=== PATIENT | male | born 1960 | race Two or more races ===

== ENCOUNTER → 2024-02-20 12:35 | Outpatient (REF) | payer BC, SELFPAY | LOC: MRI 3T 12:35 | PROVIDERS: ATTENDING PHYSICIAN Urology; FAMILY PHYSICIAN Dermatology | DX: N20.0 Calculus of kidney (principal); N40.0 Benign prostatic hyperplasia without lower urinary tract symptoms; R97.20 Elevated prostate specific antigen [PSA] | CPT/HCPCS: 72197; A9575 ==

== ENCOUNTER 2024-03-22 03:23 | Emergency (ER) | payer BC, SELFPAY ==
[2024-03-22 03:25] VITALS: BP 174/99; BMI 25.8
[2024-03-22 03:27] VITALS: BP 174/99
[2024-03-22 03:49] LABS: % Basophils 0.7 % (0-2); % Eosinophils 4.2 % (0-6); % Immature Granulocytes 0.2 % (0-0.5); % Lymphocytes 38.9 % (20.5-51.1); % Monocytes 9.2 % (1.7-9.3); % Neutrophils 46.8 % (42.2-75.2); Absolute Eosinophils 0.2 10^3/uL (0-0.7); Absolute Lymphocytes 2.1 10^3/uL (1.2-3.4); Absolute Monocytes 0.5 10^3/uL (0.1-0.6); Absolute Neutrophils 2.5 10^3/uL (1.4-6.5); Hematocrit 39.6 % (39.0-52.0); Hemoglobin 14.2 g/dL (13.0-18.0); Mean Corp Hgb Conc. 35.9 g/dL (33.0-37.0); Mean Corpuscular Hgb 32.6 pg (27.0-31.0); Mean Platelet Volume 9.4 fL (7.4-10.4); Nucleated Red Blood Cells % 0 % (-); Platelet Count 247 10^3/uL (130-400); Red Blood Cell Count 4.35 10^6/uL (4.70-6.10); Red Cell Dist. Width 12.3 % (11.5-14.5); White Blood Cell Count 5.4 10^3/uL (4.8-10.8)
[2024-03-22 04:00] VITALS: BP 165/93
[2024-03-22 04:03] LABS: ALT (SGPT) 18 U/L (0-50); AST (SGOT) 23 U/L (17-59); Albumin 4.7 g/dl (3.5-5.0); Alkaline Phosphatase 72 U/L (38-126); Blood Urea Nitrogen 20 mg/dl (9-20); Calcium 9.8 mg/dl (8.4-10.2); Carbon Dioxide 26 mmol/L (22-30); Chloride 103 mmol/L (98-107); Estimated Creatinine Clearance 69 ml/min; Glucose 128 mg/dl (70-99); Potassium 3.9 mmol/L (3.5-5.1); Sodium 140 mmol/L (135-145); Total Bilirubin 0.4 mg/dl (0.2-1.3); eGFR > 60.00
[2024-03-22 04:04] LABS: COVID-19 Antigen Negative (Negative)
[2024-03-22 04:14] LABS: Troponin I 0.018 ng/ml
[2024-03-22 05:00] VITALS: BP 170/94
--- NOTE | 2024-03-22 05:49 | ED.GENMED ---
History of Present Illness
<SHRUTHI Florez - Last Filed: 03/22/24 06:04>
General
Chief Complaint: Blood Pressure Problem
Source: patient
Time Seen by Provider: 03/22/24 05:35
History of Present Illness
History of Present Illness:
Patient is a 63 y/o male with PMHx of kidney stones presenting with elevated blood pressure x1 day. He states he went to the urologist yesterday afternoon and his systolic pressure was 190. He states he felt fine and went home and continued checking
his pressures throughout the day which continued to be elevated. He states he took two of his wives 25 mg losartan at around 2200pm last night. He states he woke up at around 0200am this morning with head pressure, nausea, and 'feeling different.'
He states he checked his BP and his systolic was 225 so he came to the ED. He states he feels a little better but he still does not feel like himself. He states he does not have diarrhea but has been having bowel movements every 30 minutes since he
woke up. He denies any chest pain, headache, dizziness, vision changes, abdominal pain, vomiting.
Phy Exam
<SHRUTHI Florez - Last Filed: 03/22/24 06:04>
Physical Exam
Physical Exam:
GENERAL: Alert , in no apparent distress
EYE: pupils equal and reactive
Throat: Airway intact, no exudates
NECK: Supple, no significant adenopathy.
CARDIAC: Regular rate and rhythm .
LUNGS: Clear breath sounds bilaterally, no acute respiratory distress, no wheezes/rales/rhonchi
ABDOMEN: Soft, nondistended, nontender, no cvat
NEUROLOGICAL: Alert and oriented x3, following commands, no focal neuro deficits.
SKIN: Warm and dry, skin intact.
MUSCULOSKELETAL: No edema, well perfused.
PSYCH: Normal and appropriate interaction.
Course
<SHRUTHI Florez - Last Filed: 03/22/24 06:04>
Orders/Labs/Results
Orders:
Orders
03/22/24 03:37
Electrocardiogram (*1) Urgent
Reason for Study: Hypertension, Benign
EKG- Treatment ONCE
03/22/24 03:40
COVID-19 Antigen Urgent
Source: Nasal Swab
Complete Blood Count/With Diff Urgent
Comprehensive Metabolic Panel Urgent
Troponin I Urgent
Influenza A+B Rapid Molecular Urgent
RODOLFO Source: Nasal Swab
Specimen Description:
03/22/24 06:22
Lisinopril [Zestril] 10 mg PO NOW STA
03/22/24 06:36
Urinalysis Reflex To Culture Urgent
Date Specimen was Collected: 03/22/24
Time Specimen was Collected: 07:40
Abnormal Lab Results
03/22/24
03:40
RBC 4.35 L 10^6/uL
(4.70-6.10)
MCH 32.6 H pg
(27.0-31.0)
Glucose 128 H mg/dl
(70-99)
03/22/24 03:40
03/22/24 03:40
Vital Signs
Initial and Last Documented VS:
Initial Vital Signs
Temp Pulse Resp BP Pulse Ox
97.8 F 83 14 174/99 99
03/22/24 03:25 03/22/24 03:25 03/22/24 03:25 03/22/24 03:25 03/22/24 03:25
Last Documented Vital Signs
Temp Pulse Resp BP Pulse Ox
97.8 F 67 13 168/108 98
03/22/24 03:25 03/22/24 07:08 03/22/24 07:08 03/22/24 06:44 03/22/24 07:08
<Deondre Norman DO - Last Filed: 03/22/24 07:45>
Orders/Labs/Results
Orders:
Orders
03/22/24 03:37
Electrocardiogram (*1) Urgent
Reason for Study: Hypertension, Benign
EKG- Treatment ONCE
03/22/24 03:40
COVID-19 Antigen Urgent
Source: Nasal Swab
Complete Blood Count/With Diff Urgent
Comprehensive Metabolic Panel Urgent
Troponin I Urgent
Influenza A+B Rapid Molecular Urgent
RODOLFO Source: Nasal Swab
Specimen Description:
03/22/24 06:22
Lisinopril [Zestril] 10 mg PO NOW STA
03/22/24 06:36
Urinalysis Reflex To Culture Urgent
Date Specimen was Collected: 03/22/24
Time Specimen was Collected: 07:40
Abnormal Lab Results
03/22/24
03:40
RBC 4.35 L 10^6/uL
(4.70-6.10)
MCH 32.6 H pg
(27.0-31.0)
Glucose 128 H mg/dl
(70-99)
03/22/24 03:40
03/22/24 03:40
Vital Signs
Initial and Last Documented VS:
Initial Vital Signs
Temp Pulse Resp BP Pulse Ox
97.8 F 83 14 174/99 99
03/22/24 03:25 03/22/24 03:25 03/22/24 03:25 03/22/24 03:25 03/22/24 03:25
Last Documented Vital Signs
Temp Pulse Resp BP Pulse Ox
97.8 F 67 13 168/108 98
03/22/24 03:25 03/22/24 07:08 03/22/24 07:08 03/22/24 06:44 03/22/24 07:08
<SHRUTHI Florez - Last Filed: 03/22/24 06:04>
MDM/Problems Addressed
Differential Diagnosis Includes:
Hypertension
<SHRUTHI Florez - Last Filed: 03/22/24 06:04>
*Pulse Oximetry
Patient hypoxic: no
*EKG
Interpreted by ED Provider?: Yes
EKG Intrepretation Date: 03/22/24
Interpretation: normal
Comparison EKG: no comparison EKG present
Heart Rate: 76
Rate: normal
Rhythm: sinus
[place]: normal axis
Interval: normal interval
QRS Pattern: normal QRS
Ischemia: no ischemia
*Trial Manager Interpretation
Rate: Trial Manager- N/A
*Critical Care Note
Total Time (30-74mins, 75-104mins- exclusive of procedures): Not Applicable
ED Attending Note
<SHRUTHI Florez - Last Filed: 03/22/24 06:04>
-
Portions of this chart may have been created with voice recognition software.� Occasional wrong word or��sound alike� substitutions may have occurred due to the inherent limitations of voice recognition software.
<Deondre Norman DO - Last Filed: 03/22/24 07:45>
ED Attending Note
Patient seen and examined by attending physician: Yes
I performed the substantive portion of visit, reviewed & personally made and approve the management plan that is documented in note by myself or GEOVANNA.: Yes
ED Attending Note:
Pleasant 63-year-old male that presents with hypertension for the last day. Patient does have a past history of kidney stones. He went to the urologist yesterday and his systolic blood pressure was 190. He had no symptoms at that point. He went
home and continue to check his blood pressure. His , a pharmacist gave him losartan around 10 PM last evening. He states that he had head pressure nausea and feeling different. Denies abdominal or flank pain. He denied any chest pain or
shortness of breath. Patient does report having some diarrhea. Denies fever or chills. Patient was seen in conjunction with the PA student. I have reviewed and agree with the history and treatment plan presented. On my independent physical
exam, patient is awake, alert, and oriented x3, no acute distress. Heart is regular rate and rhythm. Lungs are clear to auscultation bilaterally no wheezes rales rhonchi present. Abdomen is soft nontender nondistended hepatosplenomegaly. Moves
all 4 extremities. No CVA tenderness.
03/22/2024 0744 AM: Into see the patient. Resting comfortably in no acute distress.
Discharge Plan
Departure
Instructions: High Blood Pressure (DC), BLOOD PRESSURE
Prescriptions:
New
lisinopril 10 mg tablet
10 mg PO DAILY Qty: 30 0RF
Referrals:
Morris Dunn DO [Family Provider] -
Activity Restrictions/Additional Instructions:
Your prescriptions were sent electronically to the pharmacy that you specified.
It was a pleasure meeting you and taking part in your care. We hope for your continued healing and wellness.
Please read discharge instructions in their entirety. However, they are for general education and may not describe your exact diagnosis at discharge. Information on your ER visit and medical conditions were discussed with you along with appropriate
follow up information...
If indicated, please take your medications as instructed and indicated on discharge paperwork.
Please schedule a follow up appointment as directed. Call to schedule an appointment
Please return to the emergency department with ANY change in, persisting, or worsening of symptoms. If any of your symptoms do not improve, or persist, or become more severe within 6-12 hours, please return to the emergency department for further
care.
Please return to the emergency department if you develop a headache, neck pain/stiffness, fever greater than 100.4F, chest pain, shortness of breath, persistent nausea, vomiting, slurred speech, difficulty walking, numbness/tingling, weakness, signs
of infection or any other symptoms that are worrisome to you.
If you have any questions or concerns please do not hesitate to call the Hospital at or E-mail me directly at [email or web address]
Interventions
Interventions:
*Risk Screen - Suicide Last Done: 03/22/24 03:25
*General Assessment Last Done: 03/22/24 03:25
*Neglect/Abuse Screening Last Done: 03/22/24 03:25
ED- Fall Risk Assessment Last Done: 03/22/24 03:36
*ED COVID-19 Vaccine History Last Done: 03/22/24 03:34
ED- Cardiac Assessment Last Done: 03/22/24 03:34
ED- Neurological Assessment Last Done: 03/22/24 03:34
ED- Pulmonary Assessment Last Done: 03/22/24 03:34
Discharge Date and Time
Print Language: POLISH
[2024-03-22] MEDS: ZESTRIL 10 MG PO (06:44)
[2024-03-22 08:00] VITALS: BP 153/87
[2024-03-22 08:01] LABS: Urine Albumin Negative (Neg - Trace); Urine Bilirubin Negative (Negative); Urine Character Clear (Clear); Urine Color Yellow; Urine Glucose Negative (Negative); Urine Ketone Negative (Negative); Urine Leukocyte Negative (Negative); Urine Nitrite Negative (Negative); Urine Occult Blood 2+ (Negative); Urine Urobilinogen Negative (Neg - 1+)
[2024-03-22 08:22] LABS: Urine Red Blood Cell 0-2 /HPF (0-2)
[2024-03-22 08:23] LABS: Urine White Cell 0-2 /HPF (0-5)
--- NOTE | 2024-04-03 00:13 | ED.GENMED ---
History of Present Illness
General
Chief Complaint: Blood Pressure Problem
Source: patient
Time Seen by Provider: 03/22/24 05:35
History of Present Illness
History of Present Illness:
see previous note on 03/22/24
Past History
Past History
ED Past Medical History: HTN
Review of Systems
Review of Systems
Allergies reviewed?: Yes
All Other Systems: ROS reviewed and negative except as documented in HPI and ROS
Phy Exam
Physical Exam
Physical Exam:
.
Course
Orders/Labs/Results
Orders:
Orders
03/22/24 03:37
Electrocardiogram (*1) Urgent
Reason for Study: Hypertension, Benign
EKG- Treatment ONCE
03/22/24 03:40
COVID-19 Antigen Urgent
Source: Nasal Swab
Complete Blood Count/With Diff Urgent
Comprehensive Metabolic Panel Urgent
Troponin I Urgent
Influenza A+B Rapid Molecular Urgent
RODOLFO Source: Nasal Swab
Specimen Description:
03/22/24 06:22
Lisinopril [Zestril] 10 mg PO NOW STA
03/22/24 07:41
Urinalysis Reflex To Culture Urgent
Date Specimen was Collected: 03/22/24
Time Specimen was Collected: 07:40
Urine Microscopic Reflex Cult Urgent
Abnormal Lab Results
03/22/24 03/22/24
03:40 07:41
RBC 4.35 L 10^6/uL
(4.70-6.10)
MCH 32.6 H pg
(27.0-31.0)
Glucose 128 H mg/dl
(70-99)
Ur Occult Blood Reflex 2+ A
(Negative)
03/22/24 03:40
03/22/24 03:40
Vital Signs
Initial and Last Documented VS:
Initial Vital Signs
Temp Pulse Resp BP Pulse Ox
97.8 F 83 14 174/99 99
03/22/24 03:25 03/22/24 03:25 03/22/24 03:25 03/22/24 03:25 03/22/24 03:25
Last Documented Vital Signs
Temp Pulse Resp BP Pulse Ox
97.8 F 75 20 168/108 99
03/22/24 03:25 03/22/24 08:00 03/22/24 08:00 03/22/24 06:44 03/22/24 08:00
*Critical Care Note
Total Time (30-74mins, 75-104mins- exclusive of procedures): Not Applicable
ED Attending Note
-
Portions of this chart may have been created with voice recognition software.� Occasional wrong word or��sound alike� substitutions may have occurred due to the inherent limitations of voice recognition software.
Discharge Plan
Departure
Patient Disposition: Home (Routine Discharge)
Patient with high blood pressure during this ER visit?: Yes
Discharge Problem:
Hypertension
Instructions: High Blood Pressure (DC), BLOOD PRESSURE
Prescriptions:
New
lisinopril 10 mg tablet
10 mg PO DAILY Qty: 30 0RF
No Action
amlodipine 5 mg tablet
5 mg PO DAILY Qty: 30 0RF
Referrals:
Morris Dunn DO [Family Provider] -
Activity Restrictions/Additional Instructions:
Your prescriptions were sent electronically to the pharmacy that you specified.
It was a pleasure meeting you and taking part in your care. We hope for your continued healing and wellness.
Please read discharge instructions in their entirety. However, they are for general education and may not describe your exact diagnosis at discharge. Information on your ER visit and medical conditions were discussed with you along with appropriate
follow up information...
If indicated, please take your medications as instructed and indicated on discharge paperwork.
Please schedule a follow up appointment as directed. Call to schedule an appointment
Please return to the emergency department with ANY change in, persisting, or worsening of symptoms. If any of your symptoms do not improve, or persist, or become more severe within 6-12 hours, please return to the emergency department for further
care.
Please return to the emergency department if you develop a headache, neck pain/stiffness, fever greater than 100.4F, chest pain, shortness of breath, persistent nausea, vomiting, slurred speech, difficulty walking, numbness/tingling, weakness, signs
of infection or any other symptoms that are worrisome to you.
If you have any questions or concerns please do not hesitate to call the Hospital at or E-mail me directly at [email or web address]
Interventions
Interventions:
*Risk Screen - Suicide Last Done: 03/22/24 03:25
*General Assessment Last Done: 03/22/24 03:25
*Neglect/Abuse Screening Last Done: 03/22/24 03:25
ED- Fall Risk Assessment Last Done: 03/22/24 03:36
*ED COVID-19 Vaccine History Last Done: 03/22/24 03:34
*Nursing Disposition Last Done: 03/22/24 08:08
ED- Cardiac Assessment Last Done: 03/22/24 03:34
ED- Neurological Assessment Last Done: 03/22/24 03:34
ED- Pulmonary Assessment Last Done: 03/22/24 03:34
Discharge Date and Time
Discharge Date/Time: 03/22/24 08:12
Print Language: MALTESE
== END 2024-03-22 08:12 | disposition home or self-care (01) ==
LOC: EMR 03:23
PROVIDERS: EMERGENCY PHYSICIAN Student in an Organized Health Care Education/Training Program; FAMILY PHYSICIAN Family Medicine
DX: I10 Essential (primary) hypertension (principal); Z87.442 Personal history of urinary calculi; Z11.52 Encounter for screening for COVID-19
CPT/HCPCS: 99284; 80053; 81003; 81015; 84484; 85025; 87502; 87811; 93005

== ENCOUNTER 2024-03-24 13:20 | Emergency (ER) | payer BC, SELFPAY ==
[2024-03-24 13:30] VITALS: BP 197/98
[2024-03-24 13:55] LABS: % Basophils 0.9 % (0-2); % Eosinophils 2.2 % (0-6); % Immature Granulocytes 0.4 % (0-0.5); % Neutrophils 60.5 % (42.2-75.2); Absolute Basophils 0.1 10^3/uL (0-0.2); Absolute Eosinophils 0.1 10^3/uL (0-0.7); Absolute Lymphocytes 1.6 10^3/uL (1.2-3.4); Absolute Monocytes 0.4 10^3/uL (0.1-0.6); Absolute Neutrophils 3.3 10^3/uL (1.4-6.5); Hematocrit 41.9 % (39.0-52.0); Hemoglobin 14.9 g/dL (13.0-18.0); Mean Corp Hgb Conc. 35.6 g/dL (33.0-37.0); Mean Corpuscular Hgb 32.6 pg (27.0-31.0); Mean Corpuscular Volume 91.7 fL (80.0-94.0); Mean Platelet Volume 9.7 fL (7.4-10.4); Nucleated Red Blood Cells % 0 % (-); Platelet Count 255 10^3/uL (130-400); Red Blood Cell Count 4.57 10^6/uL (4.70-6.10); Red Cell Dist. Width 12.5 % (11.5-14.5); White Blood Cell Count 5.4 10^3/uL (4.8-10.8)
[2024-03-24 14:06] LABS: APTT 30.7 Sec (23.4-35.0)
[2024-03-24 14:20] LABS: ALT (SGPT) 22 U/L (0-50); AST (SGOT) 29 U/L (17-59); Alkaline Phosphatase 65 U/L (38-126); Blood Urea Nitrogen 19 mg/dl (9-20); Calcium 9.7 mg/dl (8.4-10.2); Carbon Dioxide 25 mmol/L (22-30); Chloride 101 mmol/L (98-107); Glucose 114 mg/dl (70-99); Potassium 4.7 mmol/L (3.5-5.1); Sodium 138 mmol/L (135-145); Total Bilirubin 0.9 mg/dl (0.2-1.3); Total Protein 7.7 g/dl (6.3-8.2); Troponin I < 0.012 ng/ml; eGFR > 60.00
[2024-03-24 14:41] VITALS: BMI 26.1
[2024-03-24 14:44] VITALS: BP 170/95
[2024-03-24 15:00] VITALS: BP 161/94
[2024-03-24 16:00] VITALS: BP 160/90
[2024-03-24 17:00] VITALS: BP 161/95
--- NOTE | 2024-03-24 17:52 | ED.GENMED ---
History of Present Illness
General
Chief Complaint: Blood Pressure Problem
Source: patient and family
Time Seen by Provider: 03/24/24 15:49
History of Present Illness
History of Present Illness:
63-year-old male who presents with uncontrolled hypertension. Patient states he was recently here and started on medication which she has been taking but today noticed it was high. He took the medic occasion as prescribed but after noticing it was
high he checked it several more times and seem to be going up. He denies chest pain or shortness of breath. No numbness or tingling. States is the first time he has had to deal with hypertension. Does have an appoint with his primary care doctor
upcoming. No headache. No motor weakness. No nausea or vomiting.
Past History
Past History
ED Past Medical History: HTN
Phy Exam
Physical Exam
Physical Exam:
CONSTITUTIONAL Patient alert and oriented to person, place and time. Well-appearing. Vital signs reviewed.
HEAD atraumatic, normocephalic.
EYES eyelids normal to inspection, Pupils equally round and reactive to light, Extraocular muscles intact, Conjunctiva normal, Sclera normal.
NECK normal range of motion, Trachea midline, no jugular venous distention.
RESPIRATORY CHEST No respiratory distress noted, Chest expansion equal, Bilateral breath sounds clear.
CARDIOVASCULAR regular rate and rhythm, Heart sounds normal.
ABDOMEN abdomen nontender, Bowel sounds normal. No distention.
BACK normal inspection, no obvious deformities
UPPER EXTREMITY range of motion normal, Motor strength normal, no cyanosis, no edema.
LOWER EXTREMITY range of motion normal, Motor strength normal, no cyanosis, no edema.
NEURO Speech normal, No focal motor deficits, [place] coma scale 15, Memory normal, Cranial Nerves intact to screening exam.
SKIN skin warm, dry, and normal in color.
PSYCHIATRIC patient oriented to person place and time, Normal affect.
Course
Orders/Labs/Results
Orders:
Orders
03/24/24 13:34
Electrocardiogram (*1) Urgent
Reason for Study: Vertigo / Dizzy
CT Head W/o Iv Contrast Urgent
Comment:
Reason For Exam: vision change
03/24/24 13:35
EKG- Treatment ONCE
03/24/24 13:47
Complete Blood Count/With Diff Urgent
Comprehensive Metabolic Panel Urgent
PTT Urgent
Troponin I Urgent
03/24/24 17:51
Amlodipine [Norvasc] 10 mg PO NOW STA
Abnormal Lab Results
03/24/24
13:47
RBC 4.57 L 10^6/uL
(4.70-6.10)
MCH 32.6 H pg
(27.0-31.0)
Glucose 114 H mg/dl
(70-99)
03/24/24 13:47
03/24/24 13:47
Vital Signs
Initial and Last Documented VS:
Initial Vital Signs
Temp Pulse Resp BP Pulse Ox
98.0 F 66 18 197/98 99
03/24/24 13:30 03/24/24 13:30 03/24/24 13:30 03/24/24 13:30 03/24/24 13:30
Last Documented Vital Signs
Temp Pulse Resp BP Pulse Ox
98.0 F 73 19 161/95 98
03/24/24 13:30 03/24/24 17:45 03/24/24 17:45 03/24/24 17:00 03/24/24 17:15
MDM/Problems Addressed
MDM/Problems Addressed:
Uncontrolled hypertension
*Pulse Oximetry
Patient hypoxic: no
*EKG
Interpreted by ED Provider?: Yes
Interpretation: normal
Rate: normal
Rhythm: sinus
[place]: normal axis
QRS Pattern: normal QRS
Ischemia: no ischemia
*Patternator Interpretation
Rate: normal
Interpretation: normal
Rhythm: sinus
*Critical Care Note
Total Time (30-74mins, 75-104mins- exclusive of procedures): Not Applicable
Data Reviewed
Review of Other/Old Records Reveals: Labs
Source: patient and family
Prescriptions/Medications Considered But Not Given:
Considered IV antihypertensives but blood pressure improved
Patient Management
Escalation/DeEscalation of care consider admission/obs:
Patient appears well. Recommend close outpatient follow-up. Will add amlodipine for more urgent improvement of his blood pressure. If his blood pressure improves he will discuss with his primary doctor as to whether or not they can back off the
amlodipine.
ED Attending Note
-
Portions of this chart may have been created with voice recognition software.� Occasional wrong word or��sound alike� substitutions may have occurred due to the inherent limitations of voice recognition software.
Discharge Plan
Departure
Patient Disposition: Home (Routine Discharge)
Date of Disposition: 03/24/24
Time of Disposition: 17:52
Patient with high blood pressure during this ER visit?: Yes
Discharge Problem:
Uncontrolled hypertension
Instructions: High Blood Pressure (DC), BLOOD PRESSURE
Prescriptions:
New
amlodipine 5 mg tablet
5 mg PO DAILY Qty: 30 0RF
No Action
lisinopril 10 mg tablet
10 mg PO DAILY Qty: 30 0RF
Referrals:
Morris Dunn DO [Family Provider] -
Samson Sims MD [Active] -
Activity Restrictions/Additional Instructions:
Please see your doctor in follow-up as planned. Return admitted for chest pain, shortness of breath, weakness of any kind or any other concerns. Please keep a log of your blood pressure to allow your physician to better treat it. You may need
further work to rule out secondary hypertension.
Interventions
Interventions:
*Risk Screen - Suicide Last Done: 03/24/24 13:30
*General Assessment Last Done: 03/24/24 13:30
*Neglect/Abuse Screening Last Done: 03/24/24 13:30
ED- Fall Risk Assessment Last Done: 03/24/24 14:41
*ED COVID-19 Vaccine History Last Done: 03/24/24 14:41
*Nursing Disposition Last Done: 03/24/24 18:02
ED- Cardiac Assessment Last Done: 03/24/24 14:41
ED- Neurological Assessment Last Done: 03/24/24 14:41
ED- Pulmonary Assessment Last Done: 03/24/24 14:41
Discharge Date and Time
Discharge Date/Time: 03/24/24 18:15
Print Language: [place]
[2024-03-24] MEDS: NORVASC 10 MG PO (18:00)
== END 2024-03-24 18:15 | disposition home or self-care (01) ==
LOC: EMR 13:20
PROVIDERS: Emergency Medicine; EMERGENCY PHYSICIAN Emergency Medicine; FAMILY PHYSICIAN Family Medicine
DX: I10 Essential (primary) hypertension (principal)
CPT/HCPCS: 99285; 70450; 80053; 84484; 85025; 85730; 93005